=== PATIENT | male | born 1990 | race Two or more races ===

== ENCOUNTER 2022-06-18 09:41 | Emergency (ER) | payer BC, OTHER ==
[~2022-06-18] VITALS: Ht 177.8 cm; Wt 76.0 kg
[2022-06-18 10:47] VITALS: BP 146/90
[2022-06-18] MEDS ORDERED: IBUPROFEN 800 MG TAB PO ONE (11:15)
[2022-06-18] MEDS ORDERED: IBUP800T27 PO (11:16)
== END 2022-06-18 11:20 | disposition home or self-care (01) ==
LOC: ER 09:41
DX: S92.414A Nondisplaced fracture of proximal phalanx of right great toe, initial encounter for closed fracture (principal); W22.8XXA Striking against or struck by other objects, initial encounter; Y93.89 Activity, other specified; Y92.89 Other specified places as the place of occurrence of the external cause; Y99.8 Other external cause status
CPT/HCPCS: 73630